=== PATIENT | female | born 1965 | race Caucasian/White ===

== ENCOUNTER → 2021-08-10 | Day surgery (SDC) | payer OTHER ==
[~2021-08-10] MED LIST: COLACE 100MG C100 MG PO; COREG6.25 MG PO; FERROUS SULFAT325 M2 PO; LIPITOR40 MG PO; METFORMIN ER G500 MG PO; MIRALAX17 GM PO; NEXIUM40 MG PO; TOVIAZ8 MG PO; VITAMIN D21250 MCG PO; ZESTRIL20 MG PO
== END | disposition home or self-care (01) ==
LOC: OR 06:09
DX: K29.50 Unspecified chronic gastritis without bleeding (principal); K31.9 Disease of stomach and duodenum, unspecified; K44.9 Diaphragmatic hernia without obstruction or gangrene; K21.9 Gastro-esophageal reflux disease without esophagitis; E11.9 Type 2 diabetes mellitus without complications; I10 Essential (primary) hypertension; E78.5 Hyperlipidemia, unspecified; G47.30 Sleep apnea, unspecified; F17.210 Nicotine dependence, cigarettes, uncomplicated; Z88.5 Allergy status to narcotic agent; Z88.6 Allergy status to analgesic agent; Z79.84 Long term (current) use of oral hypoglycemic drugs; Z79.899 Other long term (current) drug therapy; Z20.822 Contact with and (suspected) exposure to COVID-19
CPT/HCPCS: 82962; J7030; U0002